=== PATIENT | male | born 1945 | race Caucasian/White ===

== ENCOUNTER → 2017-10-06 | Outpatient (CLI) | payer OTHER ==
[~2017-10-06] MED LIST: IOPAMIDOL (ISOVUE 370) 100 ML BTL IV ONE
== END ==
LOC: FIMAGING 15:28
PROVIDERS: ATTEND Internal Medicine
DX: R07.89 Other chest pain (principal); I51.7 Cardiomegaly; I25.10 Atherosclerotic heart disease of native coronary artery without angina pectoris
CPT/HCPCS: 71275; Q9967

== ENCOUNTER 2018-05-11 13:14 | Day surgery (SDC) | payer OTHER ==
[2018-05-11] MEDS ORDERED: IOPAMIDOL (ISOVUE-M 300) 15 ML VIAL ONE (13:21)
[2018-05-11] MEDS ORDERED: TRIAMCINOLONE ACETONIDE 200 MG/5 ML MDV IM ONE (13:21)
[2018-05-11] MEDS ORDERED: fentaNYL 100 MCG/2 ML INJ IVP PRN (13:27)
[2018-05-11] MEDS ORDERED: MEPERIDINE 25 MG/ML SYR IVP PRN (13:27)
[2018-05-11] MEDS ORDERED: NALOXONE HCL 0.4 MG/ML INJ IVP PRN (13:27)
[2018-05-11] MEDS ORDERED: MIDAZOLAM 2 MG/2 ML VIAL IVP PRN (13:27)
[2018-05-11] MEDS ORDERED: FLUMAZENIL 0.5 MG/5 ML MDV IVP PRN (13:27)
[2018-05-11] MEDS ORDERED: NS 1,000 ML IV SCH (13:30)
[2018-05-11] MEDS ORDERED: MIDAZOLAM 2 MG/2 ML VIAL ONE (14:30)
[2018-05-11] MEDS ORDERED: fentaNYL 100 MCG/2 ML INJ ONE (14:31)
--- NOTE | 2018-05-11 14:40 | PDRADPRE ---
Radiology History & Physical Indication for procedure: other (Lower back pain with radiculopathy RLE) Surgical history: 2007 Lumbar spine Home medications: Alphagan 0.2% 1 drop EACHEYE BID 05/07/18 [Last Taken 05/11/18] Ambien 12.5 mg PO HS 05/07/18 [Last Taken 05/10/18] Amlodipine-Benazepril 5-20 mg 1 tab PO DAILY 05/07/18 [Last Taken 05/11/18] Cellcept 1,000 mg PO BID 05/07/18 [Last Taken 05/11/18] Cialis 5 mg PO DAILY 05/07/18 [Last Taken 05/10/18] Dorzolamide-Timolol Eye Drops 1 drop EACHEYE BID 05/07/18 [Last Taken 05/11/18] Immune Globulin IV 05/07/18 [Last Taken 05/08/18] Mobic 15 mg 15 mg PO DAILY 05/07/18 [Last Taken 05/08/18] Neurontin 800 mg PO BID 05/07/18 [Last Taken 05/11/18] Pravastatin Sodium 20 mg PO DAILY 05/07/18 [Last Taken 05/10/18] Xalatan 1 drop EACHEYE HS 05/07/18 [Last Taken 05/11/18] Allergies/Adverse Reactions: No Known Allergies Allergy (Unverified 05/07/18 11:37) Mental status: A&Ox3 Mallampati Score: Class 1
--- NOTE | 2018-05-11 14:40 | PDPROPOC ---
Sedation Plan of Care ASA Classification: ASA 1 Planned drugs: fentanyl, midazolam Mallampati Score: Class 1 Mallampati Reference Image: Patient passed 3-3-2 rule?: Yes
[2018-05-11 15:07] VITALS: BP 123/78
--- NOTE | 2018-05-11 15:19 | PDRADPN ---
Radiology Procedure Note Date of Procedure: 05/11/18 Radiologist: Jordan Anderson Anesthesia: IV Sedation Pre-op Diagnosis: LBP with radiculopathy Post-op Diagnosis: LBP with radiculopathy Indication: LPB with RLE toe/foot numbness > thigh weakness Procedure: L4/L5 NARGIS Right approach Finding(s): Epidural injection Kenalog and local anesthetic Inf/Abcess present in the surg proc area at time of surgery?: No
[2018-05-11] MEDS ORDERED: ONDANSETRON 4 MG/2 ML VIAL IVP PRN (16:35)
== END 2018-05-11 16:46 | disposition home or self-care (01) ==
LOC: FIMAGING 13:14
PROVIDERS: ATTEND Radiology Vascular & Interventional Radiology
DX: M54.16 Radiculopathy, lumbar region (principal); M41.9 Scoliosis, unspecified
CPT/HCPCS: J2250; J3010; J3301; Q9967